=== PATIENT | female | born 2005 ===

== ENCOUNTER 2025-04-27 03:45 | Inpatient (IN) ==
[2025-04-27] MEDS ORDERED: CALCIUM CARBONATE 500 MG CHEWABLE TAB PO PRN (08:26)
[2025-04-27] MEDS ORDERED: ACETAMINOPHEN 500 MG TAB PO PRN (08:26)
[2025-04-27] MEDS ORDERED: OXYTOCIN 30 UNITS/NSS 30 UNITS/500 ML BAG IV PRN ×2 (08:26→23:00)
--- NOTE | 2025-04-27 08:34 | History & Physical Report ---
Date of Service April 27, 2025 Assessment & Plan (1) Active labor at term: Plan: patient is a 19-year-old at 39 weeks and 6 days of gestation who is being admitted for active labor at term, Vital signs stable afebrile, heart rate reassuring, GBS negative, Plan to admit, monitor, labs, IV fluids, epidural for pain and anticipate , All questions were answered. (2) Uterine contractions at greater than 20 weeks of gestation: History of Present Illness Chief Complaint: contractions Primary Care Provider: NO PCP Patient is a 19-year-old at 39 weeks and 6 days of gestation who has been feeling contractions for the last 2 days they were irregular until 2 AM this morning when they become more regular and painful. She rates her pain a 9 out of 10 and asking for epidural. She presents to labor and delivery around 4 AM this morning when her cervix was checked by her nurse and called 1 cm dilated. She denies leakage of fluid or vaginal bleeding. She reports good movements. Her has been uncomplicated GBS negative. She denies any medical problems. Allergies Allergy/AdvReac Type Severity Reaction Status Date / Time No Known Allergies Allergy Unverified 04/25/25 23:15 Home Medications Medication Instructions Recorded Confirmed Type vits,calcium 21-iron fum 1 tab PO 04/25/25 History 14 mg iron-folic acid 400 mcg tablet ( Complete) Patient History Medical History No known health problems Social History Smoking Status: Never smoker Hx Alcohol Use: No Hx Substance Use: No Preferred Language: German [employer] Required: No Beliefs That Will Affect Care: None marital status: Current Living Situation: Family Other Information That Helps Us Care for You: No Feels Safe at Home: Yes [employer] History no history of STDs, no history of chlamydia, gonorrhea, herpes Review of Systems as per Subjective / HPI Physical Exam Constitutional: WD/WN, vitals as above well developed, well nourished and + acute distress ( with contractions) Gastrointestinal (Abdomen): normal bowel sounds, soft, nontender, no hepatosplenomegaly ( gravid) Genitourinary: no vaginal lesions, no adnexal mass OB Exam Abdomen: + vertex Manual OB Exam: + cervical dilation 5 cm, + cervical effacement 70% and + station -2 ( bulging bag) OB Exam Monitor Tracing: + external FHT monitor used, + external uterine monitor used and + category I Results & Data Vital Signs (Past 12 Hours) Vital Signs Temp Pulse Resp BP 04/27/25 07:26 22 04/27/25 07:26 36.6 C 22 04/27/25 07:26 96 H 04/27/25 07:26 115/73 04/27/25 04:06 36.9 C 18 04/27/25 04:03 88 122/68
[2025-04-27] MEDS: LACTATED RINGER'S 1,000 ML IV PRN (08:39)
[2025-04-27] MEDS ORDERED: NALBUPHINE HCL INJ 10 MG/ML AMP IV PRN (09:05)
[2025-04-27] MEDS ORDERED: SODIUM CHLORIDE 0.9% PF INJ 10 ML VIAL EPI PRN (09:05)
[2025-04-27] MEDS ORDERED: NALOXONE HCL 1 MG in SODIUM CHLORIDE 0.9% 1,000 ML IV PRN (09:05)
[2025-04-27] MEDS ORDERED: NALOXONE HCL 0.4 MG/1 ML VIAL/CARP IV PRN (09:05)
[2025-04-27] MEDS ORDERED: BUPIVACAINE 0.25% PF 30 ML VIAL EPI PRN (09:05)
[2025-04-27] MEDS ORDERED: ROPIVACAINE 0.5% PF 5 MG/ML 20 ML VIAL EPI PRN (09:05)
[2025-04-27] MEDS ORDERED: LIDOCAINE 2% MPF LOCAL 5 ML VIAL EPI PRN (09:05)
[2025-04-27] MEDS ORDERED: ePHEDrine sulfate 50 MG/ML AMP IV PRN (09:05)
[2025-04-27] MEDS ORDERED: fentaNYL citrate PF 100 MCG/2 ML VIAL EPI PRN (09:05)
[2025-04-27] MEDS ORDERED: diphenhydrAMINE 50 MG/ML VIAL IV PRN (09:05)
--- NOTE | 2025-04-27 09:05 | Anesthesiology Consultation ---
Date of Service April 27, 2025 Assessment & Plan (1) Encounter for pre-operative examination: Chart Review Chart Review: Patient NOT seen in Pre Admission Testing and Acceptable Risk for Labor Epidural Consults Requested none History Height/Weight Height: 5 ft 3 in Weight: 78.471 kg Allergies Allergy/AdvReac Type Severity Reaction Status Date / Time No Known Allergies Allergy Unverified 04/25/25 23:15 Medications Home Medications Medication Instructions Recorded Confirmed Last Taken vits,calcium 21-iron fum 1 tab PO 04/25/25 04/25/25 08:00 14 mg iron-folic acid 400 mcg tablet ( Complete) Active Medications Generic Name Dose Route Start Last Admin Trade Name Freq PRN Reason Stop Dose Admin Lactated Ringer's 1,000 mls @ 150 mls/hr 04/27/25 08:26 04/27/25 08:39 Lr IV 04/29/25 08:25 999 mls/hr .[id number] PRN Administration L&D Protocol Protocol Past Medical History Medical History No known health problems Social History Smoking Status: Never smoker Hx Alcohol Use: No Hx Substance Use: No Physical Exam Vital Signs Last Vital Signs Temp 97.9 F 04/27/25 07:26 Pulse 96 H 04/27/25 07:26 Resp 22 04/27/25 07:26 BP 115/73 04/27/25 07:26
[2025-04-27 09:07] LABS: Hematocrit (blood only) 37.8 % (37.0-47.0); Hemoglobin 13.1 g/dl (12.0-16.0); Mean Corpuscular Hemoglobin 29.4 pg (25.0-34.0); Mean Corpuscular Hgb Conc 34.7 g/dL (32.0-36.0); Mean Corpuscular Volume 84.9 fL (80.0-100.0); Mean Platelet Volume 10.4 fL (9.4-12.4); Platelet Count 242 K/uL (130-400); RDW Coefficient of Variation 15.7 % (11.5-14.5); RDW Standard Deviation 48.3 fL (36.4-46.3); Red Blood Count 4.45 M/uL (4.20-5.40); White Blood Count 15.98 K/ul (4.8-10.8)
[2025-04-27] MEDS: fentANYL 2 MCG/ML BUPIVacaine 0.125%-NSS 100ML BAG EPI PRN (09:42)
[2025-04-27] MEDS: fentaNYL citrate PF 100 MCG/2 ML VIAL ONE (09:45)
[2025-04-27] MEDS: BUPIVACAINE 0.25% PF 30 ML VIAL ONE (09:45)
[2025-04-27] MEDS: LIDOCAINE 2%/EPINEPHRINE 1:200,000 20 ML PF ONE (09:45)
--- NOTE | 2025-04-27 13:56 | Obstetrical Progress Note ---
Date of Service April 27, 2025 Assessment & Plan Admission and Anticipated Discharge Date Admission Date: April 27, 2025 Subjective Patient is reevaluated. She is comfortable now, received epidural for pain. Vital signs stable afebrile, with heart rate category 1, Carlock shows contractions irregular, spaced out, Cervix is 6, stretchable to 7 cm very soft, 70%, bulging bag, head is still at - 2 but engaged, AROM, clear fluid was obtained, Continue to monitor closely, Augment with oxytocin per protocol, All questions were answered. Results & Data Vital Signs (Past 12 Hours) Vital Signs Temp Pulse Resp BP Pulse Ox 04/27/25 13:48 98 04/27/25 13:48 101 H 04/27/25 13:44 86 04/27/25 13:44 114/66 04/27/25 13:43 96 04/27/25 13:43 90 04/27/25 13:38 97 04/27/25 13:38 95 H 04/27/25 13:33 97 04/27/25 13:33 94 H 04/27/25 13:29 101 H 04/27/25 13:29 114/75 04/27/25 13:28 97 04/27/25 13:28 105 H 04/27/25 13:23 99 04/27/25 13:23 108 H 04/27/25 13:18 99 04/27/25 13:18 104 H 04/27/25 13:13 98 04/27/25 13:13 92 H 04/27/25 13:13 102 H 04/27/25 13:13 106/69 04/27/25 13:08 99 04/27/25 13:08 96 H 04/27/25 13:03 99 04/27/25 13:03 106 H 04/27/25 12:59 97 H 04/27/25 12:59 137/73 04/27/25 12:58 97 04/27/25 12:58 92 H 04/27/25 12:53 98 04/27/25 12:53 97 H 04/27/25 12:48 98 04/27/25 12:48 104 H 04/27/25 12:44 88 04/27/25 12:44 117/56 L 04/27/25 12:43 98 04/27/25 12:43 98 H 04/27/25 12:38 97 04/27/25 12:38 97 H 04/27/25 12:33 98 04/27/25 12:33 96 H 04/27/25 12:29 96 H 04/27/25 12:29 111/56 L 04/27/25 12:28 97 04/27/25 12:28 89 04/27/25 12:23 98 04/27/25 12:23 109 H 04/27/25 12:18 98 04/27/25 12:18 104 H 04/27/25 12:13 97 04/27/25 12:13 89 04/27/25 12:13 113/62 04/27/25 12:08 99 04/27/25 12:08 107 H 04/27/25 12:03 98 04/27/25 12:03 101 H 04/27/25 12:00 105 H 04/27/25 12:00 125/56 L 04/27/25 11:58 97 04/27/25 11:58 97 H 04/27/25 11:56 22 04/27/25 11:56 36.7 C 22 04/27/25 11:53 96 04/27/25 11:53 106 H 04/27/25 11:48 96 04/27/25 11:48 106 H 04/27/25 11:43 96 04/27/25 11:43 95 H 04/27/25 11:43 102/56 L 04/27/25 11:38 94 04/27/25 11:38 82 04/27/25 11:33 93 04/27/25 11:33 85 04/27/25 11:29 90 04/27/25 11:29 100/51 L 04/27/25 11:28 94 04/27/25 11:28 91 H 04/27/25 11:23 93 04/27/25 11:23 94 H 04/27/25 11:18 93 04/27/25 11:18 88 04/27/25 11:14 83 04/27/25 11:14 102/55 L 04/27/25 11:13 93 04/27/25 11:13 89 04/27/25 11:08 94 04/27/25 11:08 93 H 04/27/25 11:03 94 04/27/25 11:03 96 H 04/27/25 11:00 16 04/27/25 11:00 16 04/27/25 10:59 93 04/27/25 10:59 94 H 04/27/25 10:58 96 04/27/25 10:58 109 H 04/27/25 10:58 102/55 L 04/27/25 10:53 95 04/27/25 10:53 87 04/27/25 10:53 94 04/27/25 10:53 87 04/27/25 10:48 96 04/27/25 10:48 89 04/27/25 10:47 94 04/27/25 10:47 97 H 04/27/25 10:44 106 H 04/27/25 10:44 105/56 L 04/27/25 10:43 98 04/27/25 10:43 105 H 04/27/25 10:38 97 04/27/25 10:38 111 H 04/27/25 10:33 98 04/27/25 10:33 108 H 04/27/25 10:30 18 04/27/25 10:30 18 04/27/25 10:28 98 04/27/25 10:28 111 H 04/27/25 10:27 99 H 04/27/25 10:27 107/55 L 04/27/25 10:23 97 04/27/25 10:23 95 H 04/27/25 10:22 100 H 04/27/25 10:22 110/54 L 04/27/25 10:18 98 04/27/25 10:18 109 H 04/27/25 10:17 111 H 04/27/25 10:17 104/61 04/27/25 10:13 98 04/27/25 10:13 120 H 04/27/25 10:12 105 H 04/27/25 10:12 101/55 L 04/27/25 10:08 98 04/27/25 10:08 109 H 04/27/25 10:07 121 H 04/27/25 10:07 95/52 L 04/27/25 10:04 18 04/27/25 10:04 18 04/27/25 10:04 111 H 04/27/25 10:04 100/49 L 04/27/25 10:03 100 04/27/25 10:03 107 H 06/02/25 09:58 100 04/27/25 09:58 100 H 04/27/25 09:58 126 H 04/27/25 09:58 101/53 L 04/27/25 09:53 100 04/27/25 09:53 102 H 04/27/25 09:52 102 H 04/27/25 09:52 94/52 L 04/27/25 09:48 100 04/27/25 09:48 109 H 04/27/25 09:46 107 H 04/27/25 09:46 103/55 L 04/27/25 09:44 114 H 04/27/25 09:44 100/50 L 04/27/25 09:43 99 04/27/25 09:43 138 H 04/27/25 09:42 114 H 04/27/25 09:42 97/54 L 04/27/25 09:40 123 H 04/27/25 09:40 93/49 L 04/27/25 09:38 99 04/27/25 09:38 104 H 04/27/25 09:38 111 H 04/27/25 09:38 106/53 L 04/27/25 09:36 104 H 04/27/25 09:36 115/63 04/27/25 09:34 94 H 04/27/25 09:34 121/70 04/27/25 09:33 100 04/27/25 09:33 98 H 04/27/25 09:28 99 04/27/25 09:28 116 H 04/27/25 09:23 98 04/27/25 09:23 129 H 04/27/25 09:18 97 04/27/25 09:18 115 H 04/27/25 09:13 99 04/27/25 09:13 110 H 04/27/25 09:08 99 04/27/25 09:08 111 H 04/27/25 09:03 100 04/27/25 09:03 113 H 04/27/25 07:26 22 04/27/25 07:26 36.6 C 22 04/27/25 07:26 96 H 04/27/25 07:26 115/73 04/27/25 04:06 36.9 C 18 04/27/25 04:03 88 122/68
[2025-04-27] MEDS: ePHEDrine sulfate 50 MG/ML AMP ONE (14:59)
[2025-04-27] MEDS: BUPIVACAINE 0.25% PF 30 ML VIAL EPI STA (15:00)
[2025-04-27] MEDS: fentANYL 2 MCG/ML BUPIVacaine 0.125%-NSS 100ML BAG ONE (15:00)
[2025-04-27] MEDS: SODIUM CHLORIDE 0.9% PF INJ 10 ML VIAL ONE (15:00)
[2025-04-27] MEDS: LIDOCAINE 2%/EPINEPHRINE 1:200,000 20 ML PF EPI STA (15:01)
[2025-04-27] MEDS: SODIUM CHLORIDE 0.9% PF INJ 10 ML VIAL EPI STA (15:01)
[2025-04-27] MEDS: fentaNYL citrate PF 100 MCG/2 ML VIAL EPI STA (15:01)
[2025-04-27] MEDS: OXYTOCIN 30 UNITS/NSS 30 UNITS/500 ML BAG IV PRN (15:09)
--- NOTE | 2025-04-27 18:10 | Obstetrical Progress Note ---
Date of Service April 27, 2025 Assessment & Plan Admission and Anticipated Discharge Date Admission Date: April 27, 2025 Subjective Patient felt pressure. CX 10/ 100%/ Head is at +2 to +3 station, heart rate category 1. Start pushing. Continue to monitor closely. Results & Data Vital Signs (Past 12 Hours) Vital Signs Temp Pulse Resp BP Pulse Ox 04/27/25 18:03 99 04/27/25 18:03 133 H 04/27/25 17:58 100 04/27/25 17:58 105 H 04/27/25 17:53 100 04/27/25 17:53 106 H 04/27/25 17:48 100 04/27/25 17:48 81 04/27/25 17:44 88 04/27/25 17:44 110/59 L 04/27/25 17:43 100 04/27/25 17:43 88 04/27/25 17:38 100 04/27/25 17:38 105 H 04/27/25 17:33 100 04/27/25 17:33 97 H 04/27/25 17:28 100 04/27/25 17:28 86 04/27/25 17:28 120/63 04/27/25 17:23 100 04/27/25 17:23 98 H 04/27/25 17:18 100 04/27/25 17:18 87 04/27/25 17:14 92 H 04/27/25 17:14 135/73 04/27/25 17:13 100 04/27/25 17:13 106 H 04/27/25 17:08 100 04/27/25 17:08 91 H 04/27/25 17:03 100 04/27/25 17:03 93 H 04/27/25 16:58 100 04/27/25 16:58 92 H 04/27/25 16:58 99 H 04/27/25 16:58 122/72 04/27/25 16:53 100 04/27/25 16:53 97 H 04/27/25 16:48 100 04/27/25 16:48 97 H 04/27/25 16:44 103 H 04/27/25 16:44 121/73 04/27/25 16:43 100 04/27/25 16:43 104 H 04/27/25 16:38 100 04/27/25 16:38 91 H 04/27/25 16:33 100 04/27/25 16:33 90 04/27/25 16:29 89 04/27/25 16:29 112/62 04/27/25 16:28 100 04/27/25 16:28 82 04/27/25 16:23 100 04/27/25 16:23 91 H 04/27/25 16:18 100 04/27/25 16:18 93 H 04/27/25 16:13 100 04/27/25 16:13 83 04/27/25 16:13 111/63 04/27/25 16:08 99 04/27/25 16:08 90 04/27/25 16:03 97 04/27/25 16:03 85 04/27/25 15:58 95 04/27/25 15:58 107 H 04/27/25 15:58 91 H 04/27/25 15:58 116/65 04/27/25 15:53 96 04/27/25 15:53 91 H 04/27/25 15:48 96 04/27/25 15:48 79 04/27/25 15:44 16 04/27/25 15:44 36.7 C 16 04/27/25 15:44 85 04/27/25 15:44 113/63 04/27/25 15:43 97 04/27/25 15:43 95 H 04/27/25 15:38 96 04/27/25 15:38 98 H 04/27/25 15:33 97 04/27/25 15:33 84 04/27/25 15:28 98 04/27/25 15:28 115 H 04/27/25 15:28 102 H 04/27/25 15:28 108/62 04/27/25 15:23 97 04/27/25 15:23 86 04/27/25 15:18 97 04/27/25 15:18 111 H 04/27/25 15:14 94 H 04/27/25 15:14 114/56 L 04/27/25 15:13 97 04/27/25 15:13 98 H 04/27/25 15:08 97 04/27/25 15:08 86 04/27/25 15:03 96 04/27/25 15:03 77 04/27/25 14:58 96 06/02/25 14:58 84 04/27/25 14:58 96 H 04/27/25 14:58 100/59 L 04/27/25 14:53 95 04/27/25 14:53 76 04/27/25 14:48 96 04/27/25 14:48 94 H 04/27/25 14:43 96 04/27/25 14:43 95 H 04/27/25 14:43 102/57 L 04/27/25 14:38 95 04/27/25 14:38 85 04/27/25 14:33 95 04/27/25 14:33 85 04/27/25 14:28 95 04/27/25 14:28 81 04/27/25 14:28 83 04/27/25 14:28 109/59 L 04/27/25 14:23 94 04/27/25 14:23 85 04/27/25 14:18 96 04/27/25 14:18 83 04/27/25 14:13 97 04/27/25 14:13 93 H 04/27/25 14:13 90 04/27/25 14:13 117/60 04/27/25 14:08 97 04/27/25 14:08 107 H 04/27/25 14:03 98 04/27/25 14:03 97 H 04/27/25 13:59 99 H 04/27/25 13:59 128/65 04/27/25 13:58 99 04/27/25 13:58 99 H 04/27/25 13:53 98 04/27/25 13:53 101 H 04/27/25 13:48 98 04/27/25 13:48 101 H 04/27/25 13:44 86 04/27/25 13:44 114/66 04/27/25 13:43 96 04/27/25 13:43 90 04/27/25 13:38 97 04/27/25 13:38 95 H 04/27/25 13:33 97 04/27/25 13:33 94 H 04/27/25 13:29 101 H 04/27/25 13:29 114/75 04/27/25 13:28 97 04/27/25 13:28 105 H 04/27/25 13:23 99 04/27/25 13:23 108 H 06/02/25 13:18 99 04/27/25 13:18 104 H 04/27/25 13:13 98 04/27/25 13:13 92 H 04/27/25 13:13 102 H 04/27/25 13:13 106/69 04/27/25 13:08 99 04/27/25 13:08 96 H 04/27/25 13:03 99 04/27/25 13:03 106 H 04/27/25 12:59 97 H 04/27/25 12:59 137/73 04/27/25 12:58 97 04/27/25 12:58 92 H 04/27/25 12:53 98 04/27/25 12:53 97 H 04/27/25 12:48 98 04/27/25 12:48 104 H 04/27/25 12:44 88 04/27/25 12:44 117/56 L 04/27/25 12:43 98 04/27/25 12:43 98 H 04/27/25 12:38 97 04/27/25 12:38 97 H 04/27/25 12:33 98 04/27/25 12:33 96 H 04/27/25 12:29 96 H 04/27/25 12:29 111/56 L 04/27/25 12:28 97 04/27/25 12:28 89 04/27/25 12:23 98 04/27/25 12:23 109 H 04/27/25 12:18 98 04/27/25 12:18 104 H 04/27/25 12:13 97 04/27/25 12:13 89 04/27/25 12:13 113/62 04/27/25 12:08 99 04/27/25 12:08 107 H 04/27/25 12:03 98 04/27/25 12:03 101 H 04/27/25 12:00 105 H 04/27/25 12:00 125/56 L 04/27/25 11:58 97 04/27/25 11:58 97 H 04/27/25 11:56 22 04/27/25 11:56 36.7 C 22 04/27/25 11:53 96 04/27/25 11:53 106 H 04/27/25 11:48 96 04/27/25 11:48 106 H 04/27/25 11:43 96 04/27/25 11:43 95 H 04/27/25 11:43 102/56 L 04/27/25 11:38 94 04/27/25 11:38 82 04/27/25 11:33 93 04/27/25 11:33 85 04/27/25 11:29 90 04/27/25 11:29 100/51 L 04/27/25 11:28 94 04/27/25 11:28 91 H 04/27/25 11:23 93 04/27/25 11:23 94 H 04/27/25 11:18 93 04/27/25 11:18 88 04/27/25 11:14 83 04/27/25 11:14 102/55 L 04/27/25 11:13 93 04/27/25 11:13 89 04/27/25 11:08 94 04/27/25 11:08 93 H 04/27/25 11:03 94 04/27/25 11:03 96 H 04/27/25 11:00 16 04/27/25 11:00 16 04/27/25 10:59 93 04/27/25 10:59 94 H 04/27/25 10:58 96 04/27/25 10:58 109 H 04/27/25 10:58 102/55 L 04/27/25 10:53 95 04/27/25 10:53 87 04/27/25 10:53 94 04/27/25 10:53 87 04/27/25 10:48 96 04/27/25 10:48 89 04/27/25 10:47 94 04/27/25 10:47 97 H 04/27/25 10:44 106 H 04/27/25 10:44 105/56 L 04/27/25 10:43 98 04/27/25 10:43 105 H 04/27/25 10:38 97 04/27/25 10:38 111 H 04/27/25 10:33 98 04/27/25 10:33 108 H 04/27/25 10:30 18 04/27/25 10:30 18 04/27/25 10:28 98 04/27/25 10:28 111 H 04/27/25 10:27 99 H 04/27/25 10:27 107/55 L 04/27/25 10:23 97 04/27/25 10:23 95 H 04/27/25 10:22 100 H 04/27/25 10:22 110/54 L 04/27/25 10:18 98 04/27/25 10:18 109 H 04/27/25 10:17 111 H 04/27/25 10:17 104/61 04/27/25 10:13 98 04/27/25 10:13 120 H 04/27/25 10:12 105 H 04/27/25 10:12 101/55 L 04/27/25 10:08 98 04/27/25 10:08 109 H 04/27/25 10:07 121 H 04/27/25 10:07 95/52 L 04/27/25 10:04 18 04/27/25 10:04 18 04/27/25 10:04 111 H 04/27/25 10:04 100/49 L 04/27/25 10:03 100 04/27/25 10:03 107 H 04/27/25 09:58 100 04/27/25 09:58 100 H 04/27/25 09:58 126 H 04/27/25 09:58 101/53 L 04/27/25 09:53 100 04/27/25 09:53 102 H 04/27/25 09:52 102 H 04/27/25 09:52 94/52 L 04/27/25 09:48 100 04/27/25 09:48 109 H 04/27/25 09:46 107 H 04/27/25 09:46 103/55 L 04/27/25 09:44 114 H 04/27/25 09:44 100/50 L 04/27/25 09:43 99 04/27/25 09:43 138 H 04/27/25 09:42 114 H 04/27/25 09:42 97/54 L 04/27/25 09:40 123 H 04/27/25 09:40 93/49 L 04/27/25 09:38 99 04/27/25 09:38 104 H 04/27/25 09:38 111 H 04/27/25 09:38 106/53 L 04/27/25 09:36 104 H 04/27/25 09:36 115/63 04/27/25 09:34 94 H 04/27/25 09:34 121/70 04/27/25 09:33 100 04/27/25 09:33 98 H 04/27/25 09:28 99 04/27/25 09:28 116 H 04/27/25 09:23 98 04/27/25 09:23 129 H 04/27/25 09:18 97 04/27/25 09:18 115 H 04/27/25 09:13 99 04/27/25 09:13 110 H 04/27/25 09:08 99 04/27/25 09:08 111 H 04/27/25 09:03 100 04/27/25 09:03 113 H 04/27/25 07:26 22 04/27/25 07:26 36.6 C 22 04/27/25 07:26 96 H 04/27/25 07:26 115/73
[2025-04-27] MEDS ORDERED: NURSING L&D Epidural Breakthrough Pain Update ONE (20:59)
[2025-04-27] MEDS: MINERAL OIL 30 ML UDC ONE (22:23)
[2025-04-27] MEDS: LIDOCAINE 1% LOCAL 20 ML VIAL INFIL PRN (22:23)
[2025-04-27] MEDS: ceFAZolin 2000MG 2,000 MG/15 ML SYR IV STA (22:36)
[2025-04-27] MEDS: IBUPROFEN 600 MG TAB PO ONE (22:57)
[2025-04-27] MEDS ORDERED: MEASLES, MUMPS & RUBELLA VIRUS VACCINE (MMR) 0.5ML VIAL SQ ONE (23:00)
[2025-04-27] MEDS ORDERED: oxyCODONE/ACETAMINOPHEN 5mg/325mg TAB PO PRN (23:00)
[2025-04-27] MEDS ORDERED: bisacodyL 10 MG SUPP PR PRN (23:00)
[2025-04-27] MEDS ORDERED: HYDROCORTISONE ACETATE 25 MG SUPP PR PRN (23:00)
[2025-04-27] MEDS ORDERED: DIPHTHER/TETAN/PERTUS Vaccine (Tdap, Adol/Adult) 0.5mL IM ONE (23:00)
--- NOTE | 2025-04-27 23:03 | Delivery Summary ---
Vaginal Delivery Summary Date of Service April 27, 2025 Vaginal Delivery Summary Patient was found to be fully dilated and desires to push. She pushed intermittently for about 30 min and delivered the head and then shoulders with minimal traction. The baby was handed off to the mother. The cord was clampedx2 and cut at 1 minute. The vagina and perineum were checked and found to have partial 3rd degree perineal laceration. Rectal exam was done and noted good sphincter tone. The gloves were changes. external sphincter muscles were held with Allis clamps brought to the midline repaired with 2-0 Vicryl with [id number] stitches x 2. Rectal exam was repeated and excellent sphincter tone noted no sutures were felt. Gloves were changed. The vaginal mucosa was repaired with 2/0 vicryl and skin on subcuticular fashion. there was oozing spots over the repair was were covered with hemostatic powder and applied pressure with 2 sponges and needles hemostatic. The placenta was delivered spontaneously as intact and complete. The uterus was explored and found to be empty. EBL was 250 ml. The fundus was firm The baby was a viable female , Apgars 8/9, the weight is pending The mother and the baby tolerated the procedure well. No complications happened and I was present during whole procedure.
[2025-04-28] MEDS: BENZOCAINE 20% SPRY 85 APPLN/85 GM CAN EXT PRN (00:52)
[2025-04-28] MEDS: ACETAMINOPHEN 325 MG TAB PO PRN (05:43)
[2025-04-28 07:57] LABS: Hematocrit (blood only) 31.4 % (37.0-47.0); Mean Corpuscular Hemoglobin 29.7 pg (25.0-34.0); Mean Corpuscular Volume 84.9 fL (80.0-100.0); Mean Platelet Volume 10.3 fL (9.4-12.4); Platelet Count 219 K/uL (130-400); RDW Coefficient of Variation 15.5 % (11.5-14.5); RDW Standard Deviation 47.9 fL (36.4-46.3); White Blood Count 20.58 K/ul (4.8-10.8)
[2025-04-28] MEDS: IBUPROFEN 600 MG TAB PO PRN (08:06)
[2025-04-28] MEDS: FERROUS SULFATE 325 MG TAB PO SCH (08:07)
[2025-04-28] MEDS: PRENATAL VITAMIN 1 TAB PO SCH (08:07)
[2025-04-28] MEDS: DOCUSATE SODIUM 100 MG CAP PO SCH (08:07)
[2025-04-28] MEDS: AMOXICILLIN/CLAVULANATE 875 MG TAB PO SCH (10:03)
--- NOTE | 2025-04-28 11:29 | Obstetrical Progress Note ---
Date of Service April 28, 2025 Subjective Ambulation: ambulating normally Voiding: no voiding problems Passing Gas:: Yes Diet Tolerance:: regular diet Feeding Type:: breast feeding Current Pain Level(1-10): 0 doing well Physical Exam Constitutional WD/WN, vitals as above Gastrointestinal (Abdomen) Inspection/Auscultation: abdomen normal to inspection abdomen soft and non-tender. fundus firm below U. Musculoskeletal Extremities: extremities normal to inspection Skin no rashes, warm and dry Neurologic patellar DTR's 2+ bilat, sensation intact Psychiatric A+Ox3, euthymic affect Results & Data Vital Signs (Past 12 Hours) Vital Signs Temp Pulse Pulse Resp BP BP Pulse Ox 04/28/25 07:50 04/28/25 07:50 36.3 C L 103 H 18 107/70 99 04/28/25 07:12 36.7 C 109 H 18 105/69 98 04/28/25 06:00 36.7 C 100 H 16 112/74 04/28/25 02:00 36.6 C 101 H 16 107/67 99 04/28/25 00:45 36.9 C 18 04/28/25 00:45 126 H 119/56 L 04/28/25 00:31 117 H 111/54 L 04/28/25 00:16 116 H 124/59 L 04/28/25 00:15 16 04/28/25 00:01 134 H 98/61 L 04/27/25 23:46 18 04/27/25 23:46 112 H 04/27/25 23:46 109/67 04/27/25 23:30 18 04/27/25 23:30 121 H 04/27/25 23:30 115/69 O2 Del Method 04/28/25 07:50 Room Air 04/28/25 07:50 Room Air 04/28/25 07:12 Room Air 04/28/25 06:00 Room Air 04/28/25 02:00 Room Air 04/28/25 00:45 04/28/25 00:45 04/28/25 00:31 04/28/25 00:16 04/28/25 00:15 04/28/25 00:01 04/27/25 23:46 04/27/25 23:46 04/27/25 23:46 04/27/25 23:30 04/27/25 23:30 04/27/25 23:30 Laboratory Results 04/27/25 04/28/25 08:49 07:25 WBC 15.98 H 20.58 H RBC 4.45 3.70 L Hgb 13.1 11.0 L Hct 37.8 31.4 L MCV 84.9 84.9 MCH 29.4 29.7 MCHC 34.7 35.0 RDW Std Deviation 48.3 H 47.9 H RDW Coeff of Gali 15.7 H 15.5 H Plt Count 242 219 MPV 10.4 10.3 Treponema pallidum Ab Negative Hep Bs Antigen Negative HIV 1&2 Ab/P24 Ag 4thGn Negative
--- NOTE | 2025-04-28 18:26 | Anesthesia Procedure Note ---
Date of Service April 28, 2025 Anesthesia Post Epidural Note Vital Signs Vital Signs: Temp Pulse Resp BP Pulse Ox O2 Del Method 36.3 C L 98 H 18 106/70 98 Room Air 04/28/25 16:00 04/28/25 16:00 04/28/25 16:00 04/28/25 16:00 04/28/25 16:00 04/28/25 16:00 Pain Intensity Episiotomy/Laceration: Pain Intensity: 7 Notes Mental Status: alert / awake / arousable Nausea / Vomiting: adequately controlled Pain: adequately controlled Airway Patency, RR, SpO2: stable & adequate BP & HR: stable & adequate Hydration State: stable & adequate Neuraxial Anesthesia: was administered and sensory block is resolving Anesthetic Complications: no major complications apparent and Pt Satisfied with anesthetic care Epidural: Removed without complications and With tip intact
[2025-04-28] MEDS: bisacodyL 5 MG TABEC PO SCH (20:14)
[2025-04-29 06:27] LABS: Hematocrit (blood only) 29.8 % (37.0-47.0); Hemoglobin 10.1 g/dl (12.0-16.0)
[2025-04-29 07:45] VITALS: BP 105/70; PULSE 85; RESP 16; TEMP 97.5; O2SAT 100
--- NOTE | 2025-04-29 10:41 | Obstetrical Progress Note ---
Date of Service April 29, 2025 Subjective Ambulation: ambulating normally Voiding: no voiding problems Passing Gas:: Yes Diet Tolerance:: regular diet Lochia:: Small Feeding Type:: breast feeding Current Pain Level(1-10): 0 (doing well. plans for d/c today.) Physical Exam Constitutional WD/WN, vitals as above Gastrointestinal (Abdomen) Inspection/Auscultation: abdomen normal to inspection fundus firm below U. non-tender. Musculoskeletal Extremities: extremities normal to inspection Skin no rashes, warm and dry Neurologic patellar DTR's 2+ bilat, sensation intact Psychiatric A+Ox3, euthymic affect Results & Data Vital Signs (Past 12 Hours) Vital Signs Temp Pulse Resp BP Pulse Ox O2 Del Method 04/29/25 07:13 36.4 C L 85 16 105/70 100 Room Air 04/28/25 23:10 36.6 C 100 H 18 110/64 99 Room Air Laboratory Results 04/27/25 04/28/25 04/29/25 08:49 07:25 05:54 WBC 15.98 H 20.58 H RBC 4.45 3.70 L Hgb 13.1 11.0 L 10.1 L Hct 37.8 31.4 L 29.8 L MCV 84.9 84.9 MCH 29.4 29.7 MCHC 34.7 35.0 RDW Std Deviation 48.3 H 47.9 H RDW Coeff of Gali 15.7 H 15.5 H Plt Count 242 219 MPV 10.4 10.3 Treponema pallidum Ab Negative Hep Bs Antigen Negative HIV 1&2 Ab/P24 Ag 4thGn Negative
== END 2025-04-29 13:30 | disposition home or self-care (01) | DRG 768 ==
LOC: OPB 03:45 → 4S1 03:49 → 4E2 04-28 01:40